=== PATIENT | female | born 1965 | race Caucasian/White ===

== ENCOUNTER 2022-12-10 13:17 | Outpatient (CLI) | payer OTHER, SELFPAY | END 2022-12-10 13:18 | disposition home or self-care (01) | PROVIDERS: PCP Student in an Organized Health Care Education/Training Program; Visit Provider Nurse Practitioner Family | DX: R14.0 Abdominal distension (gaseous) (principal); R39.15 Urgency of urination | CPT/HCPCS: 87086 ==

== ENCOUNTER 2024-04-21 12:30 | Observation (INO) | payer OTHER, SELFPAY ==
[2024-04-21] VITALS (7 sets, daily range): BP systolic 106–139; BP diastolic 63–81; PULSE 73–83; RESP 16–18; TEMP 36.3–36.8; O2SAT 96–100; BMI 32.4; BMI 32.6
--- NOTE | 2024-04-21 12:50 | ED.GIBLEED ---
HPI - GI Bleed General Time Seen by Provider: 12:50 Date Seen: 04/21/24 Chief complaint: GI Bleed Stated complaint: pooping blood Time Seen by Provider: 04/21/24 12:31 Source: patient and RN notes reviewed Mode of arrival: ambulatory Limitations: no limitations History of Present Illness HPI Narrative: This 59-year-old female is coming in with onset of left-sided abdominal pain about bedtime last night, about 9:00 p.m.. Overnight she had severe abdominal pain, at 1 point was sweaty with this. She has noted no fevers. She started with watery diarrheal bowel movements overnight. This is progressed to just passing blood on multiple occasions this morning. She does bring in a picture with small amount of blood in the bottom of the toilet, there may be some particular matter with it but it is difficult to see from a picture. She is not feeling lightheaded, short of breath, weak, elevated pulse due to blood loss. She is no longer having any stool but states it was just blood and clots. Her last colonoscopy was probably within a year with Dr. Calderon. If she is not sure if there was diverticuli, denies a history of diverticulitis. For abdominal surgeries, she had something done on the left ureter, was having recurrent bladder infections in they found a blockage or stricture that was corrected by Urology many years ago. She has had a prior , remote history of ovarian cyst removal. She states with 1 of these surgeries they did not incidental appendectomy. Her abdominal pain is not as severe as it was last night. She did eat a little breakfast this morning. No blood thinners on medication reconciliation. Has had 3 episodes of the bloody stools so far this morning. complaint: gross hematochezia Related Data Home Medications ?Medication ?Instructions ?Recorded ?Confirmed cimetidine 800 mg tablet 800 mg PO DAILY 04/21/24 04/21/24 esomeprazole magnesium 40 mg 40 mg PO DAILY 04/21/24 04/21/24 capsule,delayed release fluticasone propionate 50 1 spray intranasal BID 04/21/24 04/21/24 mcg/actuation nasal spray,suspension venlafaxine 75 mg capsule,extended 75 mg PO DAILY 04/21/24 04/21/24 release 24 hr Allergies Allergy/AdvReac Type Severity Reaction Status Date / Time clindamycin Allergy Unknown Verified 04/21/24 14:07 Sulfa (Sulfonamide AdvReac Severe Anaphylaxis Verified 04/21/24 11:57 Antibiotics) [facility] Medical History (Updated 04/21/24 @ 17:09 by Sharri Olmedo MD) Obesity (BMI 30.0-34.9) ?E66.811 - Obesity, class 1 (ICD-10) GERD (gastroesophageal reflux disease) ?K21.9 - Gastro-esophageal reflux disease without esophagitis (ICD-10) Mild depression ?F32.A - Depression, unspecified (ICD-10) Urinary incontinence ?R32 - Unspecified urinary incontinence (ICD-10) Surgical History (Updated 04/21/24 @ 17:07 by Sharri Olmedo MD) History of removal of ovarian cyst ?Z98.890 - Other specified postprocedural states (ICD-10) ?Z87.42 - Personal history of other diseases of the female genital tract (ICD-10) History of colonoscopy ?Z98.890 - Other specified postprocedural states (ICD-10) History of esophagogastroduodenoscopy (EGD) ?Z98.890 - Other specified postprocedural states (ICD-10) History of lumbar laminectomy ?Z98.890 - Other specified postprocedural states (ICD-10) History of section ?Z98.891 - History of uterine scar from previous surgery (ICD-10) Social History What is your current living situation?: I presently have a place to live Problems where you live: no known problems Problems where you live details: na In the past 12 months, utilities in danger of being shut off: no In the past 12 mos, have been you worried that your food would run out before you had money to buy more?: never true In the past 12 mos, the food you bought just didn't last and you didn't have money to buy more?: never true Highest level of school completed/degree received: high school graduate Smoking Status: Never smoker How often do you have a drink containing alcohol: never How often do you have six or more drinks on one occasion: Never AUDIT-C Alcohol total score: 0 Non-prescribed substance use: denies use Caffeine: No How often does anyone, including family, friends and others, physically hurt you: never How often does anyone, including family, friends and others, insult or talk down to you: never How often does anyone, including family, friends and others, threaten you with harm: never How often does anyone, including family, friends and others, scream or curse at you: never Exam Const: Vital Signs, click to edit/add: Vital Signs - 24 hr 04/21/24 12:40 04/21/24 13:45 04/21/24 14:53 Temperature 98.3 F Pulse Rate [Pulse Oximeter] 78 77 Respiratory Rate 16 16 Blood Pressure [Ri ght Upper Arm] 132/75 124/77 Pulse Oximetry 99 98 99 Oxygen Delivery Me thod Room Air Room Air This 59-year-old female is alert, interactive, no apparent distress. She is ambulatory into the ED, it was we can complete sentences. Sclera clear, normal coloration. Skin is warm and dry. Lungs are clear, good air entry, no wheezing crackles. CV regular rate and rhythm, no murmur, normal S1-S2, no S3-S4. She does have bowel sounds, no overt concern with the character of these. Abdomen is soft, nondistended, no significant tenderness, she does states she can feel when I press in left lower quadrant but she certainly has no evidence of any rebound or guarding. I do not feel any masses. Skin visualized without any jaundice or rash. Documenting provider has reviewed patient's vital signs: yes Course Course ED Course: Patient did show me a picture on her phone with some blood in the toilet. She is experiencing left lower quadrant pain with hematochezia. Diverticular bleed or diverticulitis is top of the differential. It could be colitis. Will proceed with IV placement, monitor on pulse oximetry. Will get full complement of labs including blood type in case we need to consider transfusion. She does not seem hemodynamically unstable with significant blood loss on presentation but will see where her hemoglobin is and monitor for ongoing bleeding. Will image with CT of her abdomen pelvis with IV contrast. Consultations Consultation #1: Did speak with hospitalist Dr. Olmedo. She is wondering if this patient could theoretically go home, might not meet criteria for hospitalization. I do feel patient would benefit from bowel rest and IV fluids. Hospitalist will look the patient's chart. I will let the patient know the hospitalists concerned and will talk to our surgeon as soon as I can. Did review with the surgeon, she really has nothing to offer but would see the patient tomorrow to ensure no complication. 1523 pm: Dr. Olmedo does accept. Do think that the patient should have observation with IV fluids and NPO status overnight, serial hemoglobins and potentially lactate redrawn if symptoms worsening. Time: 14:29 Vital Signs Vital signs: Initial Vital Signs Temperature 98.3 F 04/21/24 12:40 Temperature Source Temporal Artery Scan 04/21/24 12:40 Pulse Rate 78 04/21/24 12:40 Respiratory Rate 16 04/21/24 12:40 Blood Pressure 132/75 04/21/24 12:40 Blood Pressure Mean 94 04/21/24 12:40 Blood Pressure Position Sitting 04/21/24 12:40 Pulse Oximetry 99 04/21/24 12:40 Oxygen Delivery Method Room Air 04/21/24 12:40 Vital Signs Temperature 98.3 F 04/21/24 12:40 Pulse Rate 78 04/21/24 12:40 Respiratory Rate 16 04/21/24 12:40 Blood Pressure 132/75 04/21/24 12:40 Pulse Oximetry 99 04/21/24 12:40 Oxygen Delivery Method Room Air 04/21/24 12:40 Temperature 97.4 F L 04/21/24 16:48 Pulse Rate 73 04/21/24 16:48 Respiratory Rate 18 04/21/24 16:48 Blood Pressure 139/81 04/21/24 16:48 Pulse Oximetry 100 04/21/24 16:48 Oxygen Delivery Method Room Air 04/21/24 16:48 Medications Administered Medications: Generic Name Dose Route Start Last Admin Trade Name Freq PRN Reason Stop Dose Admin Ciprofloxacin 400 mg in 200 mls @ 200 mls/hr 04/21/24 18:00 04/21/24 19:01 Ciprofloxacin IVPB Infused Q12H BERNARD Infusion Metronidazole 500 mg in 100 mls @ 100 mls/hr 04/21/24 18:00 04/21/24 18:51 Metronidazole IVPB 100 mls/hr Q8H BERNARD Administration Sodium Chloride 1,000 mls @ 75 mls/hr 04/21/24 17:15 04/21/24 17:40 0.9 % Sodium Chloride 1000 Ml IV 75 mls/hr .[id number] BERNARD Administration MDM - GI Bleed Lab Data Attestation: I reviewed the patient's lab results. Labs: Lab Results 04/21/24 04/21/24 Range/Units 12:52 13:00 WBC 7.33 (4.50-11.00) K/uL RBC 4.80 (4.00-5.20) m/uL Hgb 14.0 (12.0-16.0) gm/dL Hct 43.0 (33.0-51.0) % MCV 90 (80-100) fL MCH 29 (26-34) pg MCHC 33 (32-36) gm/dL RDW Coeff of Mary 13.0 (11.5-15.5) % Plt Count 242 (140-440) K/uL Neut % (Auto) 69.0 (42.0-72.0) % Lymph % (Auto) 20.7 (20-44) % [place] % (Auto) 9.0 (0.0-11.0) % Eos % (Auto) 0.3 (0.0-7.0) % Baso % (Auto) 0.3 (0.0-3.0) % Neut # (Auto) 5.06 (1.7-7.0) K/uL Lymph # (Auto) 1.52 (0.90-2.90) K/uL [place] # (Auto) 0.70 (0.00-0.90) K/UL Eos # (Auto) 0.02 (0.00-0.50) K/uL Baso # (Auto) 0.02 (0.00-0.30) K/uL Abs Immat Gran (auto) 0.05 (0.00-0.30) K/uL Imm/Tot Granulo (auto) 0.7 % Sodium 137 (135-149) mmol/L Potassium 4.3 (3.6-5.1) mmol/L Chloride 104 (96-114) mmol/L Carbon Dioxide 25 (20-32) mmol/L Anion Gap 8 (7-15) mEq/L BUN 14 (7-30) mg/dL Creatinine 1.0 (0.5-1.5) mg/dL Estimated Creat Clear 51.66 Estimated GFR 64 ml/min Glucose 98 (60-115) mg/dL Lactate 0.7 (0.5-1.9) mmol/L Calcium 9.4 (8.4-10.6) mg/dL Total Bilirubin 1.0 (0.1-1.5) mg/dL AST 29 (12-35) U/L ALT 33 (4-35) U/L Alkaline Phosphatase 78 (40-150) U/L C-Reactive Protein < 0.5 L (0.5-1.0) mg/dL Total Protein 7.3 (6.0-8.3) g/dL Albumin 4.5 (3.3-5.0) g/dL POC Creatinine 1.2 (0.6-1.3) mg/dl Blood Type O Positive Imaging Data CT scan - abdomen: Attestation: I have reviewed the pertinent imaging results. My impression: Did look at her CT and on my preliminary review does look like there is colon wall thickening along the distal descending colon and sigmoid colon for sure. Will await Radiology over-read. Radiologist's impression: Patient: STAN STEWART Facility:?[facility] Patient ID:?[id number] Site Patient ID:?[id number]. Site :?[id number] Study:?CT-Abdomen/Pelvis w/ 93cc [id number]/[id number] 1:30:42 PM Ordering Physician:Chichi Lau Final Report: INDICATION: Left lower quadrant abdominal pain and hematochezia TECHNIQUE: CT abdomen and pelvis acquired with 93 mL Isovue 370 IV contrast. COMPARISON: None. FINDINGS: Lower chest: Unremarkable. Liver: Unremarkable. Normal in size and attenuation. No masses. Gallbladder and bile ducts: Unremarkable. No stones or inflammation. No biliary dilatation. Pancreas: Unremarkable. No mass or inflammation. Spleen: Unremarkable. Normal in size. No masses. Adrenal glands: Unremarkable. No nodules. Kidneys: Unremarkable. No masses, stones, or hydronephrosis. GI tract: Wall thickening involving the colon from the distal transverse colon through the rectum compatible with colitis. Vasculature: Unremarkable. Mesenteric arteries are patent. Lymph nodes: No lymphadenopathy. Omentum/Peritoneum/Abdominal Wall: Unremarkable. No sign of mass or infiltration. No free air or significant free fluid. Pelvis: Unremarkable. Bones: Unremarkable for age. IMPRESSION: Nonspecific acute colitis. Please note that all CT scans at this facility use dose modulation, iterative reconstruction, and/or weight-based dosing when appropriate to reduce radiation dose to as low as reasonably achievable. Dictated by Jose Luis Preston MD @ 04/21/2024 2:11:54 PM (Electronic Signature) Discharge Plan Discharge Clinical Impression: Colitis, Hematochezia Patient Disposition: Admitted As Observation
--- NOTE | 2024-04-21 12:51 | CRLHL7_ITS ---
For Patients: As a result of the Century Cures Act, medical imaging exams and procedure reports are released immediately into your electronic medical record. You may view this report before your referring provider. If you have questions, please contact your health care provider. INDICATION: Left lower quadrant abdominal pain and hematochezia TECHNIQUE: CT abdomen and pelvis acquired with 93 mL Isovue 370 IV contrast. COMPARISON: None. FINDINGS: Lower chest: Unremarkable. Liver: Unremarkable. Normal in size and attenuation. No masses. Gallbladder and bile ducts: Unremarkable. No stones or inflammation. No biliary dilatation. Pancreas: Unremarkable. No mass or inflammation. Spleen: Unremarkable. Normal in size. No masses. Adrenal glands: Unremarkable. No nodules. Kidneys: Unremarkable. No masses, stones, or hydronephrosis. GI tract: Wall thickening involving the colon from the distal transverse colon through the rectum compatible with colitis. Vasculature: Unremarkable. Mesenteric arteries are patent. Lymph nodes: No lymphadenopathy. Omentum/Peritoneum/Abdominal Wall: Unremarkable. No sign of mass or infiltration. No free air or significant free fluid. Pelvis: Unremarkable. Bones: Unremarkable for age. IMPRESSION: Nonspecific acute colitis. Please note that all CT scans at this facility use dose modulation, iterative reconstruction, and/or weight-based dosing when appropriate to reduce radiation dose to as low as reasonably achievable. Dictated by Jose Luis Preston MD @ 04/21/2024 2:11:54 PM (Electronically Signed)
[2024-04-21 13:07] LABS: Creatinine, Point-of-Care* 1.2 mg/dl (0.6-1.3)
[2024-04-21 13:15] LABS: Lactate* 0.7 mmol/L (0.5-1.9)
[2024-04-21 13:29] LABS: Chloride* 104 mmol/L (96-114)
[2024-04-21 13:30] LABS: Albumin* 4.5 g/dL (3.3-5.0); Potassium* 4.3 mmol/L (3.6-5.1); Sodium* 137 mmol/L (135-149)
[2024-04-21 13:32] LABS: Anion Gap 8 mEq/L (7-15); Carbon Dioxide* 25 mmol/L (20-32); Est. Creatinine Clearance* 51.66; Estimated Glomerular Filt Rate 64 ml/min
[2024-04-21 13:33] LABS: Alanine Aminotransferase* 33 U/L (4-35); Alkaline Phosphatase* 78 U/L (40-150); Aspartate Amino Transferase* 29 U/L (12-35); Blood Urea Nitrogen* 14 mg/dL (7-30); Calcium* 9.4 mg/dL (8.4-10.6); Glucose* 98 mg/dL (60-115); Total Protein* 7.3 g/dL (6.0-8.3)
[2024-04-21 13:40] LABS: C Reactive Protein* < 0.5 mg/dL (0.5-1.0)
[2024-04-21 13:48] LABS: Basophils Absolute Auto 0.02 K/uL (0.00-0.30); Basophils Percent Auto 0.3 % (0.0-3.0); Eosinophils Absolute Auto 0.02 K/uL (0.00-0.50); Eosinophils Percent Auto 0.3 % (0.0-7.0); Immature Granulocytes Abs Auto 0.05 K/uL (0.00-0.30); Immature Granulocytes Pct Auto 0.7 %; Lymphocytes Absolute Auto 1.52 K/uL (0.90-2.90); Lymphocytes Percent Auto 20.7 % (20-44); Mean Corpuscular HGB Conc 33 gm/dL (32-36); Mean Corpuscular Hemoglobin 29 pg (26-34); Mean Corpuscular Volume 90 fL (80-100); Neutrophils Absolute Auto 5.06 K/uL (1.7-7.0); Platelet Count* 242 K/uL (140-440); White Blood Count* 7.33 K/uL (4.50-11.00)
[2024-04-21 13:52] LABS: Slide Review Reflex No
--- NOTE | 2024-04-21 16:47 | PM.IMHP1 ---
Hospitalist- H&P: HPI History of Present Illness Date Seen: 04/21/24 Chief complaint: pooping blood Narrative: ADMISSION HISTORY AND PHYSICAL - HOSPITALIST Chief Complaint: Bright red blood per rectum HPI: 59-year-old white female with a history of depression and GERD presents with a 1 day history bright red blood per rectum. She states that she woke in the middle of the night with abdominal cramping and diaphoresis. She states that it resolved with 4 bowel movements. She says she has been constipated for over a week. She has a history of IBS. She states that after passing hard stool the 1st time then watery diarrhea followed. However she did not look in the bowl the 1st 2 times. The next 2 times she noted a small amount a red mucous in the bottom of the bowl. The water was clear. She has had no further bowel movements since. Her abdominal pain has resolved. She describes diaphoresis prior to her 1st BM. No further diaphoresis. No fever or chills. No history, other than a , of abdominal surgery. No history in the family of ulcerative her Crohn's disease or colon cancer. She had a normal colonoscopy in 2022. She had some mild nausea overnight but no vomiting. She is hungry now. ER COURSE: CT scan, labs. No fluids or IV antibiotics started in the ED. CODE STATUS: Full code EMERGENCY CONTACT PLAN: LanetteJacob guerrier Rel To Pat Cell I've updated the PFSH, medications and allergies in the Expanse tabs. INVESTIGATIONS: LABS/MICRO/ECG/IMAGING Completely normal vital signs. Afebrile. Pulse in the 70s. Completely normal white blood cell count. Completely normal metabolic panel. CRP normal. CT IMPRESSION: Nonspecific acute colitis. REVIEW OF SYSTEMS: 12-point ROS completed with patient and negative unless otherwise stated in HPI or below. PHYSICAL EXAM: CONSTITUTIONAL: Conversive, good historian. A/O. Knows setting and context. Laughs during our interview. Was on her phone when I walked in. VITAL SIGNS: see record. HEENT: Normocephalic, atraumatic. PERRL, EOMI, conjunctivae pink, no scleral icterus. Ears and nose externally normal. Pharynx normal. NECK: No JVD. No carotid bruit, no thyromegaly, no adenopathy. CHEST: Clear to auscultation bilaterally HEART: S1 and S2 normal. No harsh murmurs. Edema MUSCULOSKELETAL: No gross joint deformity or swelling. ABDOMEN: MILDLY OBESE, NONDISTENDED. SOFT. NORMAL BOWEL SOUNDS. NEURO: Cranial nerves intact. Grossly intact. No asymmetric findings. SKIN: No rashes, petechiae, concerning changes PSYCHIATRIC: Euthymic. ADMIT TO MEDSURG: FLOOR CARE DVT: SCDs GI: IV PPI, PO intake Time spent: Today I spent 75 minutes seeing the patient, discussing the patient with ER staff, reviewing Expanse and EPIC notes/diagnostics, discussing the care plan with our care time that includes social work, PT/OT, pharmacy, RT, [place] [facility] and documenting my impressions and plan in the medical record. [facility] Medical History (Updated 04/21/24 @ 17:09 by Sharri Olmedo MD) Obesity (BMI 30.0-34.9) ?E66.811 - Obesity, class 1 (ICD-10) GERD (gastroesophageal reflux disease) ?K21.9 - Gastro-esophageal reflux disease without esophagitis (ICD-10) Mild depression ?F32.A - Depression, unspecified (ICD-10) Urinary incontinence ?R32 - Unspecified urinary incontinence (ICD-10) Surgical History (Updated 04/21/24 @ 17:07 by Sharri Olmedo MD) History of removal of ovarian cyst ?Z98.890 - Other specified postprocedural states (ICD-10) ?Z87.42 - Personal history of other diseases of the female genital tract (ICD-10) History of colonoscopy ?Z98.890 - Other specified postprocedural states (ICD-10) History of esophagogastroduodenoscopy (EGD) ?Z98.890 - Other specified postprocedural states (ICD-10) History of lumbar laminectomy ?Z98.890 - Other specified postprocedural states (ICD-10) History of section ?Z98.891 - History of uterine scar from previous surgery (ICD-10) Social History What is your current living situation?: I presently have a place to live Problems where you live: no known problems Problems where you live details: na In the past 12 months, utilities in danger of being shut off: no In the past 12 mos, have been you worried that your food would run out before you had money to buy more?: never true In the past 12 mos, the food you bought just didn't last and you didn't have money to buy more?: never true Highest level of school completed/degree received: high school graduate Smoking Status: Never smoker How often do you have a drink containing alcohol: never How often do you have six or more drinks on one occasion: Never AUDIT-C Alcohol total score: 0 Non-prescribed substance use: denies use Caffeine: No How often does anyone, including family, friends and others, physically hurt you: never How often does anyone, including family, friends and others, insult or talk down to you: never How often does anyone, including family, friends and others, threaten you with harm: never How often does anyone, including family, friends and others, scream or curse at you: never Meds Home Medications and Allergies Home Medications ?Medication ?Instructions ?Recorded ?Confirmed ?Type cimetidine 800 mg tablet 800 mg PO DAILY 04/21/24 04/21/24 History esomeprazole magnesium 40 mg 40 mg PO DAILY 04/21/24 04/21/24 History capsule,delayed release fluticasone propionate 50 1 spray intranasal BID 04/21/24 04/21/24 History mcg/actuation nasal spray,suspension venlafaxine 75 mg capsule,extended 75 mg PO DAILY 04/21/24 04/21/24 History release 24 hr Allergies Allergy/AdvReac Type Severity Reaction Status Date / Time clindamycin Allergy Unknown Verified 04/21/24 14:07 Sulfa (Sulfonamide AdvReac Severe Anaphylaxis Verified 04/21/24 11:57 Antibiotics) Exam Const: Vital Signs, click to edit/add: Vital Signs - 24 hr 04/21/24 12:40 04/21/24 13:45 04/21/24 14:53 Temperature 98.3 F Pulse Rate [Pulse Oximeter] 78 77 Respiratory Rate 16 16 Blood Pressure [Le ft Arm] Blood Pressure [Ri ght Upper Arm] 132/75 124/77 Pulse Oximetry 99 98 99 Oxygen Delivery Me thod Room Air Room Air 04/21/24 15:50 Temperature 97.4 F L Pulse Rate [Pulse Oximeter] 73 Respiratory Rate 18 Blood Pressure [Le ft Arm] 139/81 Blood Pressure [Ri ght Upper Arm] Pulse Oximetry 100 Oxygen Delivery Me thod Room Air Hospitalist - H&P: Result Labs Labs: Short CBC 04/21/24 Range/Units 13:00 WBC 7.33 (4.50-11.00) K/uL Hgb 14.0 (12.0-16.0) gm/dL Hct 43.0 (33.0-51.0) % Plt Count 242 (140-440) K/uL BMP 04/21/24 13:00 Sodium 137 Potassium 4.3 Chloride 104 Carbon Dioxide 25 BUN 14 Creatinine 1.0 Glucose 98 Calcium 9.4 Liver Function 04/21/24 Range/Units 13:00 Total Bilirubin 1.0 (0.1-1.5) mg/dL AST 29 (12-35) U/L ALT 33 (4-35) U/L Alkaline Phosphatase 78 (40-150) U/L Albumin 4.5 (3.3-5.0) g/dL Assessment and Plan Assessment and plan (1) Colitis: Problem comment: -IV Cipro and Flagyl transitioning to oral in the morning -stool culture and PCR for stool viral pathogens ordered -accurate I's and O's with notation on number of bloody stools -likely infectious colitis Status: Acute (2) Hematochezia: Problem comment: -as above Status: Acute (3) GERD (gastroesophageal reflux disease): Problem comment: 1 dose of IV PPI and then oral home regimen in the morning Status: Acute (4) Mild depression: Problem comment: Continue home regimen; Effexor Status: Acute (5) Obesity (BMI 30.0-34.9): Status: Acute
[2024-04-21] MEDS: 0.9 % SODIUM CHLORIDE 1000 ml 1,000 ML 75 ML IV (17:40)
[2024-04-21] MEDS: CIPROFLOXACIN 400 MG/200 ML PIGGYBACK 200 MG IVPB (17:41)
--- NOTE | 2024-04-21 18:45 | PC.NURSE ---
Pt arrived to the floor at 1548, alert, oriented and vitally stable. Denies N/V/D. Bowel sounds active x4. Pt does have RADHA, spouse brought home CPAP. Pt on clears, tolerating well. Pt up independently and tolerating well. Pt in bed, call light within reach.?
[2024-04-21] MEDS: metroNIDAZOLE 500 MG/100 ML PIGGYBACK 100 MG IVPB (18:51)
[2024-04-21] MEDS: FLUTICASONE PROPIONATE NASAL 1 SPRAY NOSTRIL-B (20:56)
[2024-04-21] MEDS: SODIUM CHLORIDE 0.9 % (FLUSH) 10 ML SYRINGE 5 ML IVF (20:56)
[2024-04-22] MEDS: metroNIDAZOLE 500 MG/100 ML PIGGYBACK 100 MG IVPB ×2 (02:15→10:25)
[2024-04-22 02:38] VITALS: BP 112/70; PULSE 77; RESP 18; TEMP 36.8; O2SAT 98
--- NOTE | 2024-04-22 05:19 | PC.NURSE ---
Addendum entered by Clotilde Castillo RN 04/22/24 06:40: stool sample sent not enough, need stool sample. Addendum entered by Clotilde Castillo RN 04/22/24 06:32: stool sample collected and sent to lab. Original Note: [id number] Pt slept well during night, denies pain, N/V. no bm this shift, still waiting for stool sample. tolerated sandwich yesterday evening, advanced diet to regular.
[2024-04-22] MEDS: CIPROFLOXACIN 400 MG/200 ML PIGGYBACK 200 MG IVPB (06:05)
[2024-04-22 06:23] LABS: Hematocrit 40.5 % (33.0-51.0); Hemoglobin* 13.1 gm/dL (12.0-16.0); Mean Corpuscular HGB Conc 32 gm/dL (32-36); Mean Corpuscular Hemoglobin 30 pg (26-34); Mean Corpuscular Volume 91 fL (80-100); Platelet Count* 211 K/uL (140-440); Red Blood Count 4.44 m/uL (4.00-5.20); White Blood Count* 5.36 K/uL (4.50-11.00)
[2024-04-22 06:39] LABS: Chloride* 106 mmol/L (96-114); Slide Review Reflex No
[2024-04-22 06:40] LABS: Potassium* 4.6 mmol/L (3.6-5.1); Sodium* 137 mmol/L (135-149)
[2024-04-22 06:42] LABS: Aspartate Amino Transferase* 26 U/L (12-35); Est. Creatinine Clearance* 51.66; Estimated Glomerular Filt Rate 64 ml/min
[2024-04-22 06:43] LABS: Alanine Aminotransferase* 30 U/L (4-35); Alkaline Phosphatase* 63 U/L (40-150); Anion Gap 4 mEq/L (7-15); Blood Urea Nitrogen* 12 mg/dL (7-30); Calcium* 8.8 mg/dL (8.4-10.6); Carbon Dioxide* 27 mmol/L (20-32); Glucose* 97 mg/dL (60-115); Total Protein* 6.5 g/dL (6.0-8.3)
[2024-04-22 07:00] VITALS: BP 115/73; PULSE 70; RESP 18; TEMP 36.3; O2SAT 98
[2024-04-22 07:00] LABS: C Reactive Protein* < 0.5 mg/dL (0.5-1.0)
[2024-04-22] MEDS: OMEPRAZOLE 20 MG CAPSULE DR 40 MG PO (08:06)
[2024-04-22] MEDS: FLUTICASONE PROPIONATE NASAL 1 SPRAY NOSTRIL-B (08:46)
[2024-04-22] MEDS: VENLAFAXINE ER 75 MG CAPSULE PO (08:46)
[2024-04-22 11:00] VITALS: BP 115/64; PULSE 82; RESP 18; TEMP 36.6; O2SAT 97
--- NOTE | 2024-04-22 13:46 | P.DS_ITS ---
DS: Providers Provider Date Seen: 04/22/24 Date of admission: 04/21/24 15:45 Primary care physician: RADHA MARIE DO Admitting Clinician: Sharri Olmedo MD Attending Physician on discharge: Lynne Weaver MD DS: Diagnosis Discharge Diagnosis (1) Colitis: Status: Acute Problem details: -IV Cipro and Flagyl transitioning to oral in the morning (04/22). -stool culture and PCR for stool viral pathogens ordered -accurate I's and O's with notation on number of bloody stools -likely infectious colitis (2) Hematochezia: Status: Acute Problem details: -patient had colonoscopy about 6 months ago she mentioned that she had some polyps and that she was told that they were benign. -I discussed with the patient and her the need to follow-up with her PCP and may be referral to GI to look at at her scope results if there is any need or indication to repeat it. (3) GERD (gastroesophageal reflux disease): Status: Acute Problem details: 1 dose of IV PPI and then oral home regimen in the morning (4) Mild depression: Status: Acute Problem details: Continue home regimen; Effexor (5) Obesity (BMI 30.0-34.9): Status: Acute DS: Summary Hospital Course Hospital Course: A 59-year-old female patient with past medical history of GERD, mild depression who presents to the ED with abdominal discomfort and hematochezia that started 1 day before admission. Patient was admitted for observation and monitoring, her vital signs were stable she was never tachycardic or hypotensive, patient was not anemic and her repeat hemoglobin unremarkable. No personal Hx of cancer. Her abdomen CT scan showed nonspecific colitis for which we started treatment with IV antibiotics and we will transition to oral antibiotics today as she has been doing well. Patient to follow-up with her primary care physician in a week to follow up with labs and maybe discuss further workup for her hematochezia if needed. Patient was educated to come back to the hospital if she becomes symptomatic or if she has a large amount of bleeding per rectum. Time Spent with Patient Time attestation: Total time spent providing and/or coordinating discharge services: Exam Narrative: Exam Narrative: Physical exam GENERAL: Comfortable, no acute distress. HEAD AND NECK: Atraumatic, normocephalic CARDIOVASCULAR: RRR. Normal S1, S2. No murmurs. GASTROINTESTINAL: Not distended, not tender to palpation. NEUROLOGY: Alert, awake, oriented X 3. Normal speech. PSYCH: Normal mood, normal affect. Const: Vital Signs, click to edit/add: Vital Signs - 24 hr 04/21/24 14:53 04/21/24 15:50 04/21/24 15:50 Temperature 97.4 F L Pulse Rate [Pulse Oximeter] 77 73 Respiratory Rate 16 18 18 Blood Pressure [Le ft Arm] 139/81 Blood Pressure [Ri ght Upper Arm] 124/77 Pulse Oximetry 99 100 100 Oxygen Delivery Me thod Room Air Room Air Room Air 04/21/24 16:48 04/21/24 19:00 04/21/24 23:00 Temperature 97.4 F L 98.2 F 98.1 F Pulse Rate [Pulse Oximeter] 73 73 83 Respiratory Rate 18 18 18 Blood Pressure [Le ft Arm] 139/81 106/80 125/63 Blood Pressure [Ri ght Upper Arm] Pulse Oximetry 100 96 97 Oxygen Delivery Me thod Room Air Room Air Room Air 04/22/24 02:38 04/22/24 07:00 04/22/24 07:00 Temperature 98.2 F 97.4 F L Pulse Rate [Pulse Oximeter] 77 70 70 Respiratory Rate 18 18 18 Blood Pressure [Le ft Arm] 112/70 115/73 Blood Pressure [Ri ght Upper Arm] Pulse Oximetry 98 98 Oxygen Delivery Me thod CPAP Room Air 04/22/24 11:00 Temperature 97.8 F Pulse Rate [Pulse Oximeter] 82 Respiratory Rate 18 Blood Pressure [Le ft Arm] 115/64 Blood Pressure [Ri ght Upper Arm] Pulse Oximetry 97 Oxygen Delivery Me thod Room Air DS: Data Data Completed and Pending Labs on day of discharge: Labs from last 24 hours 04/22/24 04/22/24 04/21/24 06:10 06:00 13:00 WBC 5.36 7.33 RBC 4.44 4.80 Hgb 13.1 14.0 Hct 40.5 43.0 MCV 91 90 MCH 30 29 MCHC 32 33 RDW Coeff of Mary 13.0 Plt Count 211 242 Neut % (Auto) 69.0 Lymph % (Auto) 20.7 [place] % (Auto) 9.0 Eos % (Auto) 0.3 Baso % (Auto) 0.3 Neut # (Auto) 5.06 Lymph # (Auto) 1.52 [place] # (Auto) 0.70 Eos # (Auto) 0.02 Baso # (Auto) 0.02 Abs Immat Gran (auto) 0.05 Imm/Tot Granulo (auto) 0.7 Sodium 137 Potassium 4.6 Chloride 106 Carbon Dioxide 27 Anion Gap 4 L BUN 12 Creatinine 1.0 Estimated Creat Clear 51.66 Estimated GFR 64 Glucose 97 Calcium 8.8 Total Bilirubin 1.0 AST 26 ALT 30 Alkaline Phosphatase 63 C-Reactive Protein < 0.5 L Total Protein 6.5 Albumin 4.0 Stl C. cayetanensis PCR Pending Stool Rotavirus A PCR Pending Stool Adenovirus (PCR) Pending Stool Astrovirus (PCR) Pending Stool Campylobacter PCR Pending Stool Cryptosporidium PCR Pending Stl E.coli Shiga Tox PCR Pending Stool E coli O157 PCR Pending Stl Enterotoxigenic E PCR Pending Stool EPEC (PCR) Pending Stool EAEC (PCR) Pending Stl E. histolytica PCR Pending Stool Giardia Lamblia PCR Pending Stl P. shigelloides PCR Pending Stool Salmonella PCR Pending Stool Sapovirus (PCR) Pending Stl Shigella/EIEC PCR Pending St Y.enterocolitica PCR Pending Stool Vibrio (PCR) Pending Stl Vibrio cholerae PCR Pending Stl Norovirus GI/GII PCR Pending Blood Type O Positive Discharge Plan Discharge Disposition: Home, Self-Care Date of Admission: 04/21/24 15:45 Attending Provider on Discharge: Lynne Weaver Primary Care Provider: RADHA MARIE Condition: Stable Anticipated Discharge Date/Time: 04/22/24 13:28 Discharge Medications: New ciprofloxacin HCl 500 mg tablet 250 mg PO Q12H 4 Days Qty: 4 0RF metronidazole 500 mg tablet 500 mg PO Q8H 4 Days Qty: 12 0RF acetaminophen 325 mg Tablet 650 mg PO Q8H PRNQty: 15 0RF Continued venlafaxine 75 mg capsule,extended release 24hr 75 mg PO DAILY cimetidine 800 mg tablet 800 mg PO DAILY esomeprazole magnesium 40 mg capsule,delayed release(DR/EC) 40 mg PO DAILY fluticasone propionate 50 mcg/actuation spray,suspension 1 spray INTRANASAL BID Discharge Orders: Discharge Order (Routine); Ordered 12/15/24 Ordered By: Lynne Weaver Patient Education: Rectal Bleeding (IP), Colitis (ED) Additional Instructions: -please complete the course of antibiotics as ordered -Please follow-up with your primary care physician and discuss the need for upper endoscopy and or repeat colonoscopy because of the GI bleed. -if you have any symptoms like lightheadedness, chest pain headache or you have a large amount of bleeding the rectum please come directly to the ED again. Activity Level: Activity as Tolerated Discharge Diet: Low Fiber Follow Up Appointments: RADHA MARIE DO [Primary Care Provider] - Forms: [employer] Info Instructions
--- NOTE | 2024-04-22 15:46 | PC.NURSE ---
DC: Pt alert, oriented and vitally stable. Pt on regular diet and tolerates well. Pt up independently. Bowel sounds present and active x 4. Pt had large, soft/loose, mucous like consistency, bm with small amount of streaks of bright red blood throughout. Sample brought to lab. DC education given to pt and spouse, topics including medications, follow up and diet. Pt DC home with spouse at 1446.
[2024-04-26 12:32] LABS: Adenovirus PCR Not Detected; Astrovirus PCR Not Detected; Campylobacter PCR Not Detected; Cryptosporidium PCR Not Detected; Cyclospora cayetanensis PCR Not Detected; Entamoeba histolytica PCR Not Detected; Enteroaggregative E coli PCR Not Detected; Enteropathogenic E coli PCR Not Detected; Enterotoxigenic E coli PCR Not Detected; Giardia lamblia PCR Not Detected; Norovirus Gi/GII PCR Not Detected; Plesiomonas shig PCR Not Detected; Rotavirus A PCR Not Detected; Salmonella PCR Not Detected; Sapovirus PCR Not Detected; Shiga toxin E coli PCR Not Detected; Shigella/Enteroinvasive E coli Not Detected; Vibrio PCR Not Detected; Vibrio cholerae PCR Not Detected; Yersinia enterocolitica PCR Not Detected
== END 2024-04-22 14:46 | disposition home or self-care (01) ==
LOC: ED 15:25 → MEDSURG 15:46
PROVIDERS: Admitting Provider Family Medicine; Emergency Provider Family Medicine; PCP Student in an Organized Health Care Education/Training Program; Visit Provider Family Medicine
DX: K52.9 Noninfective gastroenteritis and colitis, unspecified (principal); K92.1 Melena; K21.9 Gastro-esophageal reflux disease without esophagitis; R10.32 Left lower quadrant pain; F32.A Depression, unspecified; E66.811 Obesity, class 1; Z68.32 Body mass index [BMI] 32.0-32.9, adult; Z87.19 Personal history of other diseases of the digestive system
CPT/HCPCS: 36415; 74177; 80053; 82565; 83605; 85025; 85027; 86140; 86900; 86901; 87045; 87046; 87427; 87505; 93005; 94761; 96361; 96365; 96366; 96368; 99284; 99285; A9270; G0378; J0744; J1836; J7030; Q9967